=== PATIENT | male | born 1930 | race Caucasian/White ===

== ENCOUNTER 2018-04-24 14:18 | Inpatient (IN) | payer OTHER, MEDICAID ==
[~2018-04-24] VITALS: Ht 177.8 cm; Wt 110.8 kg
[~2018-04-24 14:18] MED LIST: ASPIR 8181 MG PO; MICROZIDE12.5 MG PO; MOTRIN600 MG PO
[2018-04-24 14:19] VITALS: Ht 177.8 cm; Wt 110.8 kg
[2018-04-24 15:47] LABS: BASOPHIL % 0.6 % (0-2); PLATELET COUNT 169 x10^3mcL (130-400)
[2018-04-24 15:55] LABS: RED CELL DISTRIBUTION WIDTH 14.9 % (11.5-14.5)
[2018-04-24 15:58] LABS: CALCIUM 8.3 mg/dL (8.5-10.1); CARBON DIOXIDE 31.5 mmol/L (21-32); CHLORIDE SERUM 104 mmol/L (98-107); GLUCOSE SERUM 107 mg/dL (74-106); POTASSIUM SERUM 3.9 mmol/L (3.5-5.1); SODIUM SERUM 138 mmol/L (136-145)
[2018-04-24 16:03] LABS: ALBUMIN 3.5 g/dL (3.4-5.0); ALKALINE PHOSPHATASE 82 U/L (46-116); ALT/SGPT 44 U/L (16-63); AST/SGOT 24 U/L (15-37); BILIRUBIN TOTAL 0.49 mg/dL (0.20-1.00); TOTAL PROTEIN, SERUM 7.6 g/dL (6.4-8.2)
[2018-04-24 17:03] LABS: MAGNESIUM 2.2 mg/dL (1.8-2.4); PHOSPHOROUS 3.2 mg/dL (2.5-4.9)
[2018-04-24 17:04] LABS: CHOLESTEROL/HDL RATIO 5.9
[2018-04-24 17:08] LABS: T3 TOTAL 0.99 ng/mL
[2018-04-24 17:11] LABS: FREE T4 0.91 ng/dL (0.76-1.46); FREE THYROXINE INDEX 2.2 ug/dL (1.4-4.5)
[2018-04-24 17:20] VITALS: BP 146/75
[2018-04-24 20:29] VITALS: BP 122/64
[2018-04-25 02:54] LABS: microscopic required? NO
[2018-04-25 03:36] LABS: urine erythrocyte NEGATIVE (NEGATIVE)
[2018-04-25 05:16] VITALS: BP 134/70
[2018-04-25 05:52] LABS: BASOPHIL % 0.7 % (0-2); PLATELET COUNT 154 x10^3mcL (130-400)
[2018-04-25 06:43] LABS: CALCIUM 8.1 mg/dL (8.5-10.1); CARBON DIOXIDE 27.4 mmol/L (21-32); CHLORIDE SERUM 107 mmol/L (98-107); GLUCOSE SERUM 86 mg/dL (74-106); POTASSIUM SERUM 3.9 mmol/L (3.5-5.1); SODIUM SERUM 140 mmol/L (136-145)
[2018-04-25 06:59] LABS: RED CELL DISTRIBUTION WIDTH 14.9 % (11.5-14.5)
[2018-04-25 08:59] VITALS: BP 123/72
[2018-04-25 12:03] VITALS: BP 114/68
[2018-04-25 18:04] VITALS: BP 144/85
[2018-04-25 20:55] VITALS: BP 138/68
[2018-04-26 06:05] VITALS: BP 171/94
[2018-04-26 06:07] VITALS: BP 131/70
[2018-04-26 06:24] LABS: BASOPHIL % 0.7 % (0-2); PLATELET COUNT 159 x10^3mcL (130-400); RED CELL DISTRIBUTION WIDTH 14.7 % (11.5-14.5)
[2018-04-26 06:29] LABS: CALCIUM 8.3 mg/dL (8.5-10.1); CARBON DIOXIDE 27.4 mmol/L (21-32); CHLORIDE SERUM 106 mmol/L (98-107); CREATININE SERUM 0.9 mg/dL (0.7-1.3); GLUCOSE SERUM 92 mg/dL (74-106); MAGNESIUM 2.2 mg/dL (1.8-2.4); POTASSIUM SERUM 3.8 mmol/L (3.5-5.1); SODIUM SERUM 141 mmol/L (136-145)
[2018-04-26 09:10] VITALS: BP 143/65
[2018-04-26 11:34] VITALS: BP 116/58
[2018-04-26 16:21] VITALS: BP 130/68
[2018-04-26 20:24] VITALS: BP 157/81
[2018-04-27 05:16] VITALS: BP 133/77
[2018-04-27 06:37] LABS: BASOPHIL % 0.8 % (0-2); PLATELET COUNT 170 x10^3mcL (130-400)
[2018-04-27 06:56] LABS: CALCIUM 8.7 mg/dL (8.5-10.1); CARBON DIOXIDE 29.4 mmol/L (21-32); CHLORIDE SERUM 105 mmol/L (98-107); GLUCOSE SERUM 89 mg/dL (74-106); MAGNESIUM 2.3 mg/dL (1.8-2.4); POTASSIUM SERUM 4.1 mmol/L (3.5-5.1); SODIUM SERUM 138 mmol/L (136-145)
[2018-04-27 09:00] VITALS: BP 127/71
[2018-04-27] MEDS ORDERED: XARELTO10 M1 PO (12:22)
[2018-04-27 12:46] VITALS: BP 127/71
== END 2018-04-27 13:47 | disposition home or self-care (01) | DRG 299 ==
LOC: ED 14:18 → DU 16:33
PROVIDERS: Emergency Medicine; Internal Medicine
DX: I82.412 Acute embolism and thrombosis of left femoral vein (principal); N17.0 Acute kidney failure with tubular necrosis; J98.11 Atelectasis; I82.432 Acute embolism and thrombosis of left popliteal vein; E83.51 Hypocalcemia; R73.03 Prediabetes; E78.5 Hyperlipidemia, unspecified; Z79.82 Long term (current) use of aspirin; Z68.36 Body mass index [BMI] 36.0-36.9, adult; Z79.1 Long term (current) use of non-steroidal anti-inflammatories (NSAID)
CPT/HCPCS: 83880; 84439; 94150; J1650; J7030; Q0092

== ENCOUNTER 2018-11-12 15:45 | Emergency (ER) | payer OTHER, MEDICAID ==
[~2018-11-12] VITALS: Ht 170.2 cm; Wt 105.2 kg
[~2018-11-12 15:45] MED LIST changes: +XARELTO10 M1 PO
[2018-11-12 15:55] VITALS: Ht 170.2 cm; Wt 105.2 kg
[2018-11-12 16:57] LABS: PLATELET COUNT 170 x10^3mcL (130-400); RED CELL DISTRIBUTION WIDTH 15.1 % (11.5-14.5)
[2018-11-12 16:58] LABS: BASOPHIL % 0.2 % (0-2); CALCIUM 8.4 mg/dL (8.5-10.1); CARBON DIOXIDE 29.3 mmol/L (21-32); CHLORIDE SERUM 105 mmol/L (98-107); CREATININE SERUM 1.2 mg/dL (0.7-1.3); GLUCOSE SERUM 113 mg/dL (74-106); SODIUM SERUM 138 mmol/L (136-145)
[2018-11-12 17:03] LABS: ALBUMIN 3.4 g/dL (3.4-5.0); ALKALINE PHOSPHATASE 66 U/L (46-116); ALT/SGPT 34 U/L (16-63); AST/SGOT 17 U/L (15-37); BILIRUBIN TOTAL 0.7 mg/dL (0.20-1.00); LIPASE 48 IU/L (73-393); TOTAL PROTEIN, SERUM 7.1 g/dL (6.4-8.2)
[2018-11-12 18:50] LABS: microscopic required? NO
[2018-11-12 18:55] LABS: UA SPECIFIC GRAVITY 1.025 (1.005-1.035); urine erythrocyte NEGATIVE (NEGATIVE)
[2018-11-12 19:22] VITALS: BP 120/61
== END 2018-11-12 19:22 | disposition home or self-care (01) ==
LOC: ED 15:45
PROVIDERS: Emergency Medicine
DX: M54.5 Low back pain (principal); I89.8 Other specified noninfective disorders of lymphatic vessels and lymph nodes; I82.401 Acute embolism and thrombosis of unspecified deep veins of right lower extremity; I10 Essential (primary) hypertension; Z88.0 Allergy status to penicillin
CPT/HCPCS: J1885; J2405; J7030; Q0092